=== PATIENT | male | born 1970 | race Caucasian/White ===

== ENCOUNTER → 2016-04-17 | Outpatient (CLI) | payer BC ==
--- NOTE | 2016-04-17 14:42 | DIAGNOSTIC IMAGING REPORT ---
ULTRASOUND RIGHT LOWER EXTREMITY VENOUS CLINICAL HISTORY: Right leg pain and swelling. COMPARISON STUDY: No priors. TECHNIQUE: Real-time, grayscale, and color Doppler sonography of the deep veins of the right lower extremity was performed from the inguinal crease to the calf. Compression and augmentation were utilized. FINDINGS: There is no sonographic evidence of deep venous thrombosis identified in the right lower extremity. The common femoral, superficial femoral, and popliteal veins are patent and normally compressible. The greater saphenous vein and the profunda femoris vein at the junction with the common femoral vein are clear. The visualized calf veins are patent. IMPRESSION: There is no sonographic evidence of deep venous thrombosis identified in the right lower extremity. Electronically signed by: Jeremy Bautista M.D. 04/17/2016 2:41 PM Dictated Date/Time: 04/17/2016 2:40 PM
== END ==
LOC: C.ULTR 13:56
PROVIDERS: ATTEND Family Medicine
DX: M79.661 Pain in right lower leg (principal); M79.89 Other specified soft tissue disorders

== ENCOUNTER → 2017-02-24 | Outpatient (CLI) | payer BC, OTHER ==
[~2017-02-24] MED LIST: CEPH500C PO; SULF800T23 PO
--- NOTE | 2017-02-24 15:58 | DIAGNOSTIC IMAGING REPORT ---
LEFT ANKLE 3 VIEWS HISTORY: LEFT ANKLE AND HEEL PAIN COMPARISON: None. FINDINGS: There is no fracture or dislocation. Diffuse soft tissue swelling. Small joint effusion. No radiopaque foreign bodies. IMPRESSION: 1. No fracture or dislocation within the left ankle. 2. Soft tissue swelling and a small joint effusion. Electronically signed by: Ab Aguilar M.D. 02/24/2017 3:56 PM Dictated Date/Time: 02/24/2017 3:55 PM
== END | disposition home or self-care (01) ==
LOC: C.RDSM 08:00
PROVIDERS: ATTEND Physician Assistant
DX: R52 Pain, unspecified (principal)

== ENCOUNTER 2017-02-27 20:41 | Emergency (ER) | payer OTHER ==
[~2017-02-27] VITALS: Ht 180.3 cm; Wt 103.3 kg
[2017-02-27 20:53] VITALS: TEMP 37.2; Ht 180.3 cm; Wt 103.3 kg
[2017-02-27 22:22] LABS: BASO % 0.8 %; BASO ABS # 0.06 K/uL (0-0.2); EOS % 4.2 %; EOS ABS # 0.33 K/uL (0-0.5); HEMATOCRIT 37.2 % (42-52); HEMOGLOBIN 12.8 g/dL (14.0-18.0); IG# 0.01 K/uL (0.00-0.02); LYMPH % 21.6 %; MEAN CELL VOLUME 85.5 fL (80-100); MEAN CORPUSCULAR HEMOGLOBIN 29.4 pg (25-34); MEAN CORPUSCULAR HGB CONC 34.4 g/dl (32-36); MEAN PLATELET VOLUME 8.9 fL (7.4-10.4); MONO % 10.2 %; NEUT % 63.1 %; NEUT ABS # 4.98 K/uL (1.4-6.5); PLATELET COUNT 268 K/uL (130-400); RED CELL DISTRIBUTION WIDTH CV 12.7 % (11.5-14.5); RED CELL DISTRIBUTION WIDTH SD 39.5 fL (36.4-46.3); WHITE BLOOD COUNT 7.88 K/uL (4.8-10.8)
[2017-02-27 22:38] LABS: CALCIUM 9.4 mg/dl (8.5-10.1); CREATININE 1.05 mg/dl (0.60-1.40); POTASSIUM 4.3 mmol/L (3.5-5.1)
--- NOTE | 2017-02-27 22:47 | DIAGNOSTIC IMAGING REPORT ---
VENOUS DOPP LOWER EXT UNILAT CLINICAL HISTORY: swelling lle pain. Edema. TECHNIQUE: Venous Doppler COMPARISON STUDY: 04/17/2016 FINDINGS: Normal study IMPRESSION: Normal study The above report was generated using voice recognition software. It may contain grammatical, syntax or spelling errors. Electronically signed by: Newton Landaverde M.D. 02/27/2017 10:46 PM Dictated Date/Time: 02/27/2017 10:46 PM
[2017-02-27] MEDS ORDERED: CEPHALEXIN MONOHYDRATE 250 MG CAP PO ONE (23:00)
[2017-02-27] MEDS ORDERED: SULFAMETHOXAZOLE/TRIMETHOPRIM DS 800/160MG TAB PO ONE (23:00)
[2017-02-27] MEDS ORDERED: SULF800T23 PO (23:04)
[2017-02-27] MEDS ORDERED: CEPH500C PO (23:04)
[2017-02-27 23:31] VITALS: BP 153/112; PULSE 84; O2SAT 96
--- NOTE | 2017-02-27 23:50 | EMERGENCY ROOM VISIT NOTE ---
History Report prepared by Jace: Jabsir Trotter Under the Supervision of: Dr. eNeraj Lam D.O. First contact with patient: 21:45 Chief Complaint: ANKLE PAIN Stated Complaint: LEFT ANKLE SWOLLEN- POSSIBLE BLOOD CLOT History of Present Illness The patient is a 46 year old male who presents to the Emergency Room with complaints of constant left ankle swelling beginning a week ago. The patient states that he drove to [place] a week ago, and that his foot became stiff and began to swell. He notes that he had an appointment with [facility] 3 days ago where a "dark spot was detected" on his X-RAY. He reports that he has not had any trauma to his ankle. The patient states that he has pain in the calf that feels like it is "radiating outwards." He notes that his pain worsens when he puts pressure on his foot when he walks. He reports that he has two kids at home with strep and the flu. The patient states that his ankle is becoming more swollen, but that the redness is not changing. He notes that he experienced similar symptoms a few months ago. Pt denies headache, change in vision, chest pain, shortness of breath, nausea, vomiting, diarrhea, pain with urination, cough, runny nose, numbness in extremity, new or surrounding redness , fevers greater than 100.4, and abdominal pain. Source of History: patient Onset: a week ago Position: ankle (left) Timing: constant, worsening Modifying Factors (Worsening): other (walking) Associated Symptoms: No headache, No cough, No chest pain, No SOB, No nausea , No vomiting, No abdominal pain, No diarrhea, No urinary symptoms, No numbness Note: He also complains of calf pain and redness to his ankle and calf. He denies any runny nose, new or surrounding redness, and fevers greater than 100.4. Review of Systems See HPI for pertinent positives & negatives. A total of 10 systems reviewed and were otherwise negative. Past Medical & Surgical Medical Problems: (1) No chronic diseases present Family History No pertinent family history stated. Social History Smoking Status: Former Smoker Marital Status: Housing Status: lives with family Occupation Status: employed Current/Historical Medications Scheduled Cephalexin Monohydrate (Keflex), 500 MG PO QID Sulfa/Trimethoprim (Bactrim Ds 800MG/160MG), 1 TAB PO BID Miscellaneous Medications None (Patient States No Home Meds) Allergies Coded Allergies: No Known Allergies (Unverified , 07/29/09) Physical Exam Vital Signs Date Time Temp Pulse Resp B/P (MAP) Pulse Ox O2 Delivery O2 Flow Rate FiO2 02/27/17 23:31 84 18 153/112 96 Room Air 02/27/17 20:53 37.2 92 20 166/107 96 Room Air Physical Exam GENERAL: Sitting up in bed, alert, well appearing, well nourished, no distress, non-toxic EYE EXAM: normal conjunctiva. OROPHARYNX: no exudate, no erythema, lips, buccal mucosa, and tongue normal and mucous membranes are moist NECK: supple, no nuchal rigidity, no adenopathy, non-tender LUNGS: Clear to auscultation. Normal chest wall mechanics HEART: no murmurs, S1 normal and S2 normal ABDOMEN: abdomen soft, non-tender, normo-active bowel sounds, no masses, no rebound or guarding. UPPER EXTREMITIES: upper extremities are grossly normal. LOWER EXTREMITIES: Full active and passive range of motion of left hip and knee. Left ankle with swelling medially and laterally tracking into the dorsal aspect of the foot. Tenderness on palpation. DPs intact. Gross sensation intact. Mild erythema on the medial and lateral aspects of the foot. Pain with range of motion of the ankle. No induration or puncture wounds within the skin as it is intact. No erythema tracking up the leg. NEURO EXAM: Normal sensorium, cranial nerves II-XII grossly intact, normal speech, no gross weakness of arms. Medical Decision & Procedures ER Provider Diagnostic Interpretation: Radiology results as stated below per my review and the radiologist's interpretation: VENOUS DOPP LOWER EXT UNILAT CLINICAL HISTORY: swelling lle pain. Edema. TECHNIQUE: Venous Doppler COMPARISON STUDY: 04/17/2016 FINDINGS: Normal study IMPRESSION: Normal study The above report was generated using voice recognition software. It may contain grammatical, syntax or spelling errors. Electronically signed by: Newton Landaverde M.D. 02/27/2017 10:46 PM Laboratory Results 02/27/17 22:11 Red Blood Count 4.35, Mean Corpuscular Volume 85.5, Mean Corpuscular Hemoglobin 29.4, Mean Corpuscular Hemoglobin Concent 34.4, Mean Platelet Volume 8.9, Neutrophils (%) (Auto) 63.1, Lymphocytes (%) (Auto) 21.6, Monocytes (%) (Auto) 10.2, Eosinophils (%) (Auto) 4.2, Basophils (%) (Auto) 0.8, Neutrophils # (Auto ) 4.98, Lymphocytes # (Auto) 1.70, Monocytes # (Auto) 0.80, Eosinophils # (Auto ) 0.33, Basophils # (Auto) 0.06 02/27/17 22:11 Test 02/27/17 22:11 White Blood Count 7.88 K/uL (4.8-10.8) Red Blood Count 4.35 M/uL (4.7-6.1) Hemoglobin 12.8 g/dL (14.0-18.0) Hematocrit 37.2 % (42-52) Mean Corpuscular Volume 85.5 fL (80-100) Mean Corpuscular Hemoglobin 29.4 pg (25-34) Mean Corpuscular Hemoglobin Concent 34.4 g/dl (32-36) Platelet Count 268 K/uL (130-400) Mean Platelet Volume 8.9 fL (7.4-10.4) Neutrophils (%) (Auto) 63.1 % Lymphocytes (%) (Auto) 21.6 % Monocytes (%) (Auto) 10.2 % Eosinophils (%) (Auto) 4.2 % Basophils (%) (Auto) 0.8 % Neutrophils # (Auto) 4.98 K/uL (1.4-6.5) Lymphocytes # (Auto) 1.70 K/uL (1.2-3.4) Monocytes # (Auto) 0.80 K/uL (0.11-0.59) Eosinophils # (Auto) 0.33 K/uL (0-0.5) Basophils # (Auto) 0.06 K/uL (0-0.2) RDW Standard Deviation 39.5 fL (36.4-46.3) RDW Coefficient of Variation 12.7 % (11.5-14.5) Immature Granulocyte % (Auto) 0.1 % Immature Granulocyte # (Auto) 0.01 K/uL (0.00-0.02) Anion Gap 8.0 mmol/L (3-11) Est Creatinine Clear Calc Drug Dose 105.2 ml/min Estimated GFR () 96.8 Estimated GFR (Non- 83.5 BUN/Creatinine Ratio 11.8 (10-20) Calcium Level 9.4 mg/dl (8.5-10.1) Laboratory results per my review. Medications Administered Medications (Trade) Dose Ordered Sig/Angel Route Start Time Stop Time Status Last Admin Dose Admin Cephalexin Monohydrate (Keflex Cap) 500 mg NOW ONCE PO 02/27/17 23:00 02/27/17 23:01 DC 02/27/17 23:33 500 MG Trimethoprim/ Sulfamethoxazole (Septra Ds 800/ 160MG Tab) 1 tab NOW ONCE PO 02/27/17 23:00 02/27/17 23:01 DC 02/27/17 23:33 1 TAB ED Course ED COURSE: Vital signs were reviewed and were showed to be situationally hypertensive. The patients medical record was reviewed The above diagnostic studies were performed and reviewed. ED treatments and interventions as stated above. 2144: The patient was evaluated in room A12. A complete history and physical examination was performed. 2206: I discussed the patient's case with Dr. Holden - Orthopedic Surgery, [place] [facility]. 2300: Trimethoprim/Sulfamethoxazole 1 tab PO, Keflex Cap 500mg PO 2333: Upon reevaluation, the patient is stable. I discussed my findings with the patient and he understands and agrees with the treatment plan. Based on the patients age, coexisting illnesses, exam and lab findings the decision to treat as an outpatient was made. The patient remained stable while under my care. The patient appeared well at the time of discharge. Medical Decision Differential diagnosis: Etiologies such as fracture, dislocation, neurovascular compromise, compartment syndrome, soft tissue injury, as well as others were entertained. Patient is a 47-year-old male who presents to ER for left ankle pain. This started close to a week ago while he was on a trip in [place]. Symptoms have been worsening. He saw that stated orthopedics and had x-rays which were unremarkable. Family did not want this repeated. No fevers. Swelling has been worsening. He denies any change in the erythema. No history of gout. Has been using crutches. CBC along with BMP was unremarkable. No leukocytosis. No fever. No tachycardia did have erythema on the lateral and medial aspect although patient notes this hasn't changed in close to week. Question gout versus cellulitis. No history of trauma. Duplex was negative. 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 They recommended following up as an outpatient and felt this was reasonable. I did cover him with Bactrim and Keflex for possible infection. Recommended Motrin 400 mg 3 times a day for 2-3 days in case this is gout. Patient will contact orthopedics tomorrow to see if he can be seen at that time. He does have an MRI scheduled for the next 2-3 days. Discussed with Pt concerning signs and symptoms to watch out for. Pt was instructed to follow up with their PCP and discussed with the patient their option to return to the ED at anytime for persistent or worsening symptoms. The appropriate anticipatory guidance and out-patient management, including indications for return to the emergency department, were explained at length to the patient and understood. Medication Reconcilliation Current Medication List: was personally reviewed by me Blood Pressure Screening Patient's blood pressure: Elevated blood pressure Blood pressure disposition: Elevated BP felt to be situational Consults Time Called: 2203 Consulting Physician: Dr. Holden - Orthopedic Surgery, [place] Returned Call: [phone] Discussed the patient's case. Impression Primary Impression: Ankle pain Scribe Attestation The scribe's documentation has been prepared under my direction and personally reviewed by me in its entirety. I confirm that the note above accurately reflects all work, treatment, procedures, and medical decision making performed by me. Departure Information Dispostion Home / Self-Care Prescriptions Sulfa/Trimethoprim (Bactrim Ds 800MG/160MG) Tab 1 TAB PO BID, #20 TAB Prov: Neeraj Lam, DO 02/27/17 Cephalexin Monohydrate (Keflex) 500 Mg Cap 500 MG PO QID, #28 CAP Prov: Neeraj Lam, DO 02/27/17 Referrals Jesus Medina D.O. (PCP) Forms HOME CARE DOCUMENTATION FORM, IMPORTANT VISIT INFORMATION Patient Instructions [facility] Additional Instructions Please follow up with your primary care doctor with in the next 24 hours. Any worsening of your symptoms, please return to the ED immediately. This includes any fevers greater than 100.4, worsening pain, chest pain, shortness breath, persistent nausea, vomiting, unable to eat or drink, redness streaking up the leg, or any other concerning signs or symptoms from your standpoint. Please take Tylenol or Motrin as needed for pain. Please take Keflex and Bactrim as prescribed Please take Motrin 400 mg 3 times a day as needed for pain. Please call orthopedics tomorrow follow-up with them as soon as possible. Problem Qualifiers Primary Impression: Ankle pain Chronicity: acute Laterality: left Qualified Codes: M25.572 - Pain in left ankle and joints of left foot
== END 2017-02-27 23:33 | disposition home or self-care (01) ==
LOC: C.EDB 20:43 → C.EDA 23:33
DX: M25.572 Pain in left ankle and joints of left foot (principal); R03.0 Elevated blood-pressure reading, without diagnosis of hypertension; Z87.891 Personal history of nicotine dependence

== ENCOUNTER → 2017-02-28 | Outpatient (CLI) | payer OTHER ==
[2017-02-28 13:09] LABS: BASO % 0.9 %; BASO ABS # 0.06 K/uL (0-0.2); EOS % 3.1 %; EOS ABS # 0.21 K/uL (0-0.5); HEMATOCRIT 38.8 % (42-52); HEMOGLOBIN 13.7 g/dL (14.0-18.0); IG# 0.02 K/uL (0.00-0.02); LYMPH % 22.3 %; MEAN CELL VOLUME 85.7 fL (80-100); MEAN CORPUSCULAR HEMOGLOBIN 30.2 pg (25-34); MEAN PLATELET VOLUME 8.9 fL (7.4-10.4); MONO % 7.6 %; MONO ABS # 0.51 K/uL (0.11-0.59); NEUT % 65.8 %; NEUT ABS # 4.43 K/uL (1.4-6.5); PLATELET COUNT 290 K/uL (130-400); RED CELL DISTRIBUTION WIDTH CV 12.8 % (11.5-14.5); WHITE BLOOD COUNT 6.73 K/uL (4.8-10.8)
[2017-02-28 13:21] LABS: MEAN CORPUSCULAR HGB CONC 35.3 g/dl (32-36)
[2017-02-28 13:31] LABS: URIC ACID 6.4 mg/dl (2.6-7.2)
== END | disposition home or self-care (01) ==
LOC: C.LAB 12:40
PROVIDERS: ATTEND Physician Assistant
DX: M25.572 Pain in left ankle and joints of left foot (principal)

== ENCOUNTER → 2017-02-28 | Outpatient (CLI) | payer OTHER | END | disposition home or self-care (01) | LOC: C.LABSPEC 14:38 | PROVIDERS: ATTEND Orthopaedic Surgery | DX: M19.072 Primary osteoarthritis, left ankle and foot (principal) ==

== ENCOUNTER → 2017-03-01 | Outpatient (CLI) | payer OTHER ==
--- NOTE | 2017-03-02 06:54 | DIAGNOSTIC IMAGING REPORT ---
MRI OF THE LEFT ANKLE WITHOUT CONTRAST CLINICAL HISTORY: Left ankle pain and swelling. No recent trauma. COMPARISON STUDY: Left ankle radiographs February 24, 2017. TECHNIQUE: Utilizing a 1.5 Sharon magnet and dedicated coil, multiplanar, multiecho imaging of the left ankle was performed without intravenous or intraarticular contrast. FINDINGS: Alignment of the left ankle is anatomic. No fracture is present. There is no suspicious marrow replacement. Talar dome is intact. No osteochondral defect is present. There is mild nonspecific marrow edema involving the mid talus. There is moderate subcutaneous edema of the left ankle. No fluid collection is identified. Achilles tendon is intact. Plantar fascia is unremarkable. An os trigonum which contains mild edema is noted. A few small suspected ganglion cysts along the dorsal aspect of the left midfoot are noted. Intrinsic ligaments of the left ankle appear intact. The flexor, peroneal and extensor tendons appear intact. There is minimal marrow edema within the proximal shaft of the fifth metatarsal without discrete fracture as well as minimal edema within the posterior calcaneus. IMPRESSION: 1. Mild nonspecific marrow edema of the talus, calcaneus and left fifth metatarsal. 2. Moderate subcutaneous edema of the left ankle. Overall, the findings are nonspecific but could be seen in the setting of reflex sympathetic dystrophy. 3. No osteochondral lesion identified. 4. Os trigonum which contains minimal edema. Electronically signed by: Daniel Ibarra M.D. 03/02/2017 6:53 AM Dictated Date/Time: 03/01/2017 5:13 PM
== END | disposition home or self-care (01) ==
LOC: C.MRIBC 16:14
PROVIDERS: ATTEND Physician Assistant
DX: M25.572 Pain in left ankle and joints of left foot (principal); Q66.89 Other specified congenital deformities of feet

== ENCOUNTER → 2017-03-03 | Outpatient (CLI) | payer OTHER | END | disposition home or self-care (01) | LOC: C.LAB 15:08 | PROVIDERS: ATTEND Orthopaedic Surgery | DX: G90.50 Complex regional pain syndrome I, unspecified (principal) ==